=== PATIENT | male | born 1950 | race Two or more races ===

== ENCOUNTER 2020-11-29 08:25 | Observation (INO) | payer MEDICARE ==
[2020-11-26 16:31] LABS: BASOPHILS % (AUTO) 0 % (0-1); EOSINOPHILS % (AUTO) 2 % (1-7); LYMPHOCYTES % (AUTO) 14 % (22-44); MEAN CORPUSCULAR HEMOGLOBIN 28.9 pg (27.5-34.5); MEAN PLATELET VOLUME 9.7 fL (7.4-10.4); MONOCYTES % (AUTO) 9 % (2-9); NEUTROPHILS % (AUTO) 75 % (42-75); PLATELET COUNT 119 x10^3/uL (130-400); RED CELL DISTRIBUTION WIDTH 14.4 % (9.4-14.8)
[2020-11-26 16:44] LABS: INTERNATIONAL NORMALIZED RATIO 1.01 (0.93-1.1); PROTHROMBIN TIME 10.8 Seconds (9.6-11.5)
[2020-11-26 16:45] LABS: ALBUMIN 4.2 g/dL (3.4-5.0); ANION GAP 8 mmol/L (5-15); CALCIUM 9.4 mg/dL (8.5-10.1); CHLORIDE 106 mmol/L (98-107)
[2020-11-26 16:48] LABS: ALANINE AMINOTRANSFERASE 39 U/L (12-78); ALKALINE PHOSPHATASE 107 U/L (45-117); BILIRUBIN,TOTAL 0.8 mg/dL (0.2-1.0); CREATININE 1.24 mg/dL (0.7-1.3); TOTAL PROTEIN 7.9 g/dL (6.4-8.2)
[2020-11-26 16:51] LABS: MICROSCOPIC INDICATED
[~2020-11-29] VITALS: Ht 167.6 cm; Wt 78.2 kg
[~2020-11-29 08:25] MED LIST: AMLO-150 PO; ASCO500T9 PO; ATEN50TA41 PO; CHOL500045 PO; DOXY50SY PO; FINA5TAB PO; HYDR-3343 PO; HYDR25TA6 PO; LISI1TAB20 PO; LISI40TA9 PO; MELA5TAB14 PO; METF-365 PO; METF500T17 PO; POTA-143 PO; PRED20TA PO; ROSU20TA2 PO; SILD100T PO; SILD25TA PO; TAMS-11 PO; THIA100T67 PO; ZINC220C7 PO
[2020-11-29] MEDS ORDERED: CHLORHEXIDINE 15 ML UDC PO ONE (09:30)
[2020-11-29] MEDS ORDERED: LACTATED RINGERS 1,000 ML IV SCH (09:30)
[2020-11-29] MEDS ORDERED: OPIUM/BELLADONNA SUPP.RECT 16.2-30 MG ONE (09:33)
[2020-11-29] MEDS ORDERED: FENTANYL PF 100 MCG/2ML ONE ×2 (09:51→11:25)
[2020-11-29] MEDS ORDERED: ACETAMINOPHEN 325 MG TABLET PO PRN (10:30)
[2020-11-29] MEDS ORDERED: LABETALOL 5MG/ML, 20ML IV PRN (10:30)
[2020-11-29] MEDS ORDERED: HYDROmorphone 1 MG/ML, 1ML INJ IVPush PRN (10:30)
[2020-11-29] MEDS ORDERED: OXYcodone 5 MG/5 ML ORAL.SOL UDC PO PRN ×2 (10:30→15:00)
[2020-11-29] MEDS ORDERED: hydrALAzine 20 MG/ML, 1ML IV PRN (10:30)
[2020-11-29] MEDS ORDERED: LORazepam 2 MG/ML, 1ML IVPush PRN (10:30)
[2020-11-29] MEDS ORDERED: PROMETHAZINE 25 MG/ML, 1ML IVPush PRN (10:30)
[2020-11-29] MEDS ORDERED: PROMETHAZINE 25 MG SUPP PR PRN (10:30)
[2020-11-29] MEDS ORDERED: METHOCARBAMOL 1,000 MG in DEXTROSE 5% 100 ML IV PRN (10:30)
[2020-11-29] MEDS ORDERED: FENTANYL PF 100 MCG/2ML IV PRN (10:30)
[2020-11-29] MEDS ORDERED: METOPROLOL 1 MG/ML, 5ML IV PRN (10:30)
[2020-11-29] MEDS ORDERED: ONDANSETRON 2MG/ML, 2ML IVPush PRN (10:30)
[2020-11-29] MEDS ORDERED: DEXAMETHASONE 4 MG/ML, 1ML ONE (11:52)
[2020-11-29] MEDS ORDERED: PROPOFOL 10 MG/ML, 20ML ONE (11:52)
[2020-11-29] MEDS ORDERED: ONDANSETRON 2MG/ML, 2ML ONE (11:52)
[2020-11-29] MEDS ORDERED: CEFAZOLIN 1,000 MG ONE (11:52)
[2020-11-29] MEDS ORDERED: hydrALAzine 20 MG/ML, 1ML ONE (13:32)
[2020-11-29] MEDS ORDERED: OPIUM/BELLADONNA SUPP.RECT 16.2-30 MG PR PRN (15:00)
[2020-11-29] MEDS: ACETAMINOPHEN 325 MG TABLET PO SCH ×2 (15:00→21:30)
[2020-11-29] MEDS ORDERED: HYDROmorphone 1 MG/ML, 1ML INJ IV PRN (15:00)
[2020-11-29 17:00] VITALS: BP 170/76
[2020-11-29] MEDS ORDERED: HYDROmorphone 2 MG/ML, 1ML ONE (17:17)
[2020-11-29 20:33] VITALS: BP 156/78
[2020-11-29] MEDS: DOCUSATE 100 MG CAPSULE PO SCH (21:31)
[2020-11-30 00:09] VITALS: BP 145/77
[2020-11-30] MEDS: ACETAMINOPHEN 325 MG TABLET PO SCH ×2 (02:36→09:38)
[2020-11-30 03:48] VITALS: BP 174/86
[2020-11-30] MEDS ORDERED: POLYETHYLENE GLYCOL 17 GM PACKET PO SCH (09:00)
[2020-11-30 09:10] VITALS: BP 159/77
[2020-11-30] MEDS: DOCUSATE 100 MG CAPSULE PO SCH (09:38)
== END 2020-11-30 11:00 | disposition home or self-care (01) ==
LOC: OUT 08:25 → ORIP 14:56 → 4NE 16:35 → OUT 17:07
PROVIDERS: ADMIT Student in an Organized Health Care Education/Training Program; ATTEND Student in an Organized Health Care Education/Training Program
DX: N40.1 Benign prostatic hyperplasia with lower urinary tract symptoms (principal); R33.8 Other retention of urine; N52.9 Male erectile dysfunction, unspecified; E78.2 Mixed hyperlipidemia; I10 Essential (primary) hypertension; E11.9 Type 2 diabetes mellitus without complications; Z79.899 Other long term (current) drug therapy
CPT/HCPCS: 36415; 52648; 80053; 81001; 82962; 85025; 85610; 85730; 87077; 87086; 87186; 93005; 96374; G0378; J0360; J0690; J1100; J1170; J2405; J2704; J3010; J7120; Q0177